=== PATIENT | female | born 1990 | race Caucasian/White ===

== ENCOUNTER 2019-09-07 19:31 | Emergency (ER) | payer MEDICAID ==
[~2019-09-07] VITALS: Ht 165.1 cm; Wt 61.2 kg
--- NOTE | 2019-09-07 19:44 | NUR ---
PT PRESENTED TO THE ER WITH A C/O HEAD INJURY S/P SLIP AND FALL YESTERDAY. PT HAS BEEN FEELING LIGHT HEADED AND NAUSEATED SINCE. PT AMBULATED TO ER 7 WITH A STEADY GAIT.
--- NOTE | 2019-09-07 20:23 | NUR ---
[facility] SIGNED AND RADIOLOGY CALLED RE: CT AND XRAY.
--- NOTE | 2019-09-07 20:27 | NUR ---
[facility] WA[facility] GIVEN TO RADIOLOGY.
--- NOTE | 2019-09-07 20:33 | NUR ---
XRAY IN PROGRESS AT THE BEDSIDE.
--- NOTE | 2019-09-07 20:35 | NUR ---
PT LEFT FOR CT VIA WC.
--- NOTE | 2019-09-07 21:57 | NUR ---
Patient discharged to home in stable condition. Written and verbal after care instructions given. Patient verbalizes understanding of instruction AND RX. PT AMBULATED OUT WITH A STEADY GAIT. PT IS TAKING AN UBER HOME. VSS. NAD NOTED.
[2019-09-07 21:58] VITALS: BP 111/65
== END 2019-09-07 21:59 | disposition home or self-care (01) ==
LOC: ER 19:36
DX: S06.0X0A Concussion without loss of consciousness, initial encounter (principal); M54.2 Cervicalgia; M54.5 Low back pain; M54.6 Pain in thoracic spine; W18.09XA Striking against other object with subsequent fall, initial encounter; Y93.89 Activity, other specified; Y92.89 Other specified places as the place of occurrence of the external cause; Y99.8 Other external cause status
CPT/HCPCS: 70450-TC; 72070-TC; 72110-TC; 72125-TC